=== PATIENT | male | born 1950 | race Caucasian/White ===

== ENCOUNTER 2025-01-14 07:17 | Emergency (ER) | payer MEDICARE, OTHER, SELFPAY ==
[2025-01-14 07:20] VITALS: BP 187/75
--- NOTE | 2025-01-14 08:27 | ED.GENMED ---
History of Present Illness
General
Chief Complaint: Male Genito-Urinary Symptoms
Source: patient and spouse
Exam Limitations: none
Time Seen by Provider: 01/14/25 08:03
Nursing documentation reviewed up to this point in time: agreed with
History of Present Illness
History of Present Illness:
74-year-old male presents with trouble urinating had a catheter for 5 weeks, followed by urologist in [place] catheter was removed yesterday has not really voided since then no fevers has pain in suprapubic region, no nausea or vomiting
Past History
Past History
ED Past Medical History: HTN and Other (Urinary retention hypertension)
ED Past Surgical History: Orthopedic
Social History
Tobacco: Non-smoker
Alcohol: None
Drug: None
Personal:
Living: with family
Employment: Retired
Review of Systems
Review of Systems
All Other Systems: Not applicable
ABD/GI: Reports abdominal pain
: Reports difficulty voiding; Denies flank pain
Phy Exam
Physical Exam
Physical Exam:
Physical Exam
General: 74 male looks uncomfortable but nontoxic
Neck: supple.
Heart: Regular
Lungs: no acute respiratory distress. clear bilaterally
Abdomen: Tender to suprapubic region
Neuro: alert and oriented. no focal neurological deficits
Skin: no rash
Psychiatric: well kept. interactive and cooperative
Extremities: no edema.
Course
Orders/Labs/Results
Orders:
Orders
01/14/25 08:06
Bladder Scan- Treatment ONCE
01/14/25 08:21
Rice Placement- Treatment ONCE
Reason for insertion: Acute Retention
01/14/25 08:23
Lidocaine 2% [Lidocaine Uro-Jet 2%] 1 syringe .ROUTE .[facility]
01/14/25 08:53
Urinalysis Reflex To Culture Urgent
Date Specimen was Collected: 01/14/25
Time Specimen was Collected: 08:52
Urine Microscopic Reflex Cult Urgent
Urine Culture Urgent
TODD Source: U
Specimen Description:
Date Specimen was Collected: 01/14/25
Time Specimen was Collected: 08:52
01/14/25 08:58
Tamsulosin [Flomax] 0.4 mg PO NOW STA
Abnormal Lab Results
01/14/25
08:53
Ur Occult Blood Reflex 4+ A
(Negative)
Urine Nitrite (Reflex) Positive A
(Negative)
Leukocyte Esterase Rfl 3+ A
(Negative)
Urine WBC (Reflex) >100 A /HPF
(0-5)
Urine Albumin (Reflex) 3+ A
(Neg - Trace)
Vital Signs
Initial and Last Documented VS:
Initial Vital Signs
Temp Pulse Resp BP Pulse Ox
97.7 F 65 16 187/75 98
01/14/25 07:20 01/14/25 07:20 01/14/25 07:20 01/14/25 07:20 01/14/25 07:20
Last Documented Vital Signs
Temp Pulse Resp BP Pulse Ox
97.7 F 65 16 187/75 98
01/14/25 07:20 01/14/25 07:20 01/14/25 07:20 01/14/25 07:20 01/14/25 08:29
MDM/Problems Addressed
Differential Diagnosis Includes:
Urinary retention UTI
MDM/Problems Addressed:
Trouble urine
Chronic conditions affecting care:
Urinary
Chronic conditions affecting care: HTN
Acute Exacerbation and/or Progression of Chronic Illness:
Urinary retention
Acute Exacerbation and/or Progression of Chronic Illness: HTN
*Pulse Oximetry
SaO2: 98
Oxygen Mode of Delivery: Room air
Patient hypoxic: no
*Critical Care Note
Total Time (30-74mins, 75-104mins- exclusive of procedures): Not Applicable
Update Note
Update Note:
Will ask RN to BladderScan and place catheter check urine urine culture
9 AM, bladder scan noted urine output 1500 cc with 18 Cuban Rice
UA noted, urine culture pending will start on antibiotics
pt would like to f/u locally
ED Attending Note
-
Portions of this chart may have been created with voice recognition software.� Occasional wrong word or��sound alike� substitutions may have occurred due to the inherent limitations of voice recognition software.
Discharge Plan
Departure
Patient Disposition: Home (Routine Discharge)
Date of Disposition: 01/14/25
Time of Disposition: 09:35
Patient with high blood pressure during this ER visit?: No
Condition: Good
Discharge Problem:
Urinary retention
Instructions: How to Care for Your Rice Catheter, Male, Urinary Retention (DC)
Prescriptions:
New
tamsulosin [Flomax] 0.4 mg capsule
0.4 mg PO HS Qty: 60 0RF
levofloxacin 500 mg tablet
500 mg PO DAILY 7 Days Qty: 7 0RF
Referrals:
Perez Yao MD [Family Provider]
Joseph Darnell MD [Active, Urology] - Next open appointment
Activity Restrictions/Additional Instructions:
Follow-up with your urologist in [place]
Interventions
Interventions:
*Risk Screen - Suicide Last Done: 01/14/25 07:20
*General Assessment Last Done: 01/14/25 08:40
*Neglect/Abuse Screening Last Done: 01/14/25 07:20
*ED- Fall Risk Assessment Last Done: 01/14/25 08:40
*ED COVID-19 Vaccine History Last Done: 01/14/25 08:40
ED-Male Genitourinary Assessment Last Done: 01/14/25 08:40
Discharge Date and Time
Print Language: [id number]
[2025-01-14 08:40] VITALS: BMI 31.7
[2025-01-14 09:08] LABS: Urine Character Cloudy (Clear)
[2025-01-14 09:18] LABS: Urine White Cell >100 /HPF (0-5)
[2025-01-14] MEDS: FLOMAX 0.4 MG PO (09:33)
[2025-01-14] MEDS: LEVAQUIN 500 MG PO (09:45)
== END 2025-01-14 09:51 | disposition home or self-care (01) ==
LOC: EMR 07:17
PROVIDERS: EMERGENCY PHYSICIAN Emergency Medicine; FAMILY PHYSICIAN Internal Medicine Cardiovascular Disease
DX: R33.9 Retention of urine, unspecified (principal); I10 Essential (primary) hypertension
CPT/HCPCS: 99283; 51798; 51702; 81003; 81015; 87077; 87086; 87186

== ENCOUNTER → 2025-05-13 18:13 | Outpatient (REF) | payer MEDICARE, OTHER, SELFPAY | LOC: MRI 3T 18:13 | PROVIDERS: ATTENDING PHYSICIAN Surgery; FAMILY PHYSICIAN Internal Medicine Cardiovascular Disease | DX: R97.20 Elevated prostate specific antigen [PSA] (principal) | CPT/HCPCS: 72197; A9575 ==